=== PATIENT | female | born 1970 | race African-American/Black ===

== ENCOUNTER → 2023-06-16 | Outpatient (CLI) | payer MEDICARE, SELFPAY | END | disposition home or self-care (01) | PROVIDERS: PCP Family Medicine; Referring Provider Family Medicine; Visit Provider Family Medicine | DX: N39.0 Urinary tract infection, site not specified (principal) | CPT/HCPCS: 87086 ==

== ENCOUNTER → 2023-07-28 | Outpatient (CLI) | payer MEDICARE, MEDICAID, SELFPAY ==
--- NOTE | 2023-07-28 09:37 | RAD_ITS ---
EXAM: XR LEFT HIP WITH PELVIS WHEN PERFORMED, 2 OR 3 VIEWS CLINICAL INDICATION: Chronic pain TECHNIQUE: Two or three views of the left hip with pelvis when performed. COMPARISON: No relevant prior studies available. FINDINGS: BONES/JOINTS: There is mild irregularity of the left iliac crest may be from old trauma. No displaced fracture. No destructive or sclerotic lesions. Note that overlapping bowel shadows may however obscure fine detail. Sacroiliac joint is unremarkable. No widening of the pubic symphysis. The articular structures are unremarkable. SOFT TISSUES: Unremarkable. No soft tissue swelling or gas. RAD/HIP, UNI W/ Pelvis 2-3 Views IMPRESSION: 1. No acute osseous abnormalities of the pelvis or left hip. 2. Mild irregularity of the left iliac crest possibly from old trauma. Electronically Signed: Manan Briones MD at 23:46 EST ,
== END | disposition home or self-care (01) ==
PROVIDERS: PCP Family Medicine; Referring Provider Family Medicine; Visit Provider Family Medicine
DX: M25.552 Pain in left hip (principal); G89.29 Other chronic pain
CPT/HCPCS: 73502

== ENCOUNTER → 2024-05-26 | Outpatient (CLI) | payer MEDICAID, MEDICARE, SELFPAY ==
--- NOTE | 2024-05-26 13:07 | RAD_ITS ---
STUDY: X-RAY - ABDOMEN/PELVIS REASON FOR EXAM: Female, 54 years old. Left flank pain. TECHNIQUE: Single AP view of the abdomen / pelvis 2 images. COMPARISON: None. FINDINGS: Normal visualized lung bases. There is an normal bowel gas pattern. Minimal feces in the colon. The visualized liver, spleen and kidneys are grossly normal in size and morphology. Phleboliths. Normal visualized osseous structures. RAD/Abdomen Single View IMPRESSION: No acute abnormality in the lower chest, abdomen or pelvis. Electronically Signed: Vasquez Arias MD at 13:43 EDT ,
== END | disposition home or self-care (01) ==
PROVIDERS: PCP Family Medicine; Referring Provider Family Medicine; Visit Provider Family Medicine
DX: R10.9 Unspecified abdominal pain (principal)
CPT/HCPCS: 74018

== ENCOUNTER → 2024-08-23 | Outpatient (CLI) | payer MEDICARE, MEDICAID, SELFPAY ==
--- NOTE | 2024-08-23 16:59 | RAD_ITS ---
INDICATION: Productive cough EXAMINATION/TECHNIQUE: X-RAY - XR Chest 2 Views COMPARISON: No relevant prior comparison study available FINDINGS: LINES/DEVICES: None. LUNGS: The lungs are well expanded. No consolidation, edema or effusion. No pneumothorax. MEDIASTINUM AND CARDIOVASCULAR STRUCTURES: Cardiac silhouette not enlarged. Central airways and mediastinal contour are unremarkable. BONES AND SOFT TISSUES: No acute abnormality. RAD/Chest PA and Lateral IMPRESSION: No acute pulmonary finding. Electronically Signed: Neil Diaz MD at 20:03 EST ,
[2024-08-23 18:05] LABS: Absolute Lymphocyte Count 3.56 X10^3/uL (0.83-4.51); Absolute Neutrophil Count 8.7 X10^3/uL (2.0-7.7); Basophil# 0.06 X10^3/uL; Basophil% 0.4 % (0-1); Eosinophil# 0.37 X10^3/uL; Eosinophils% 2.7 % (0-5); Hemoglobin 11.7 g/dL (12.0-15.0); Lymphocyte # 3.56 X10^3/ul (0.83-4.51); Lymphocyte % 25.6 % (19-41); Mean Corp Hgb Conc 32.5 g/dL (32-36); Mean Corpuscular Hgb 28.3 pg (27.0-32.0); Mean Platelet Vol. 10.8 fl (6.2-12.0); Monocyte# 1.21 X10^3/uL; Monocyte% 8.7 % (0-10); NRBC Flagged by Analyzer 0 % (0-5); Neutrophil # 8.66 X10^3/uL (2.7-7.7); Neutrophil % 62.3 % (47-70); Platelet Count 344 K/mm3 (150-450); RBC Distribution Width CV 13.2 % (11.6-14.6); RBC Distribution Width SD 41.2 fl (35.1-43.9); Red Blood Count 4.14 M/mm3 (4.2-5.4); White Blood Count 13.9 K/mm3 (4.4-11.0)
[2024-08-23 18:27] LABS: Hemoglobin A1c 5.8 % (3.8-5.6)
[2024-08-23 18:41] LABS: ALB/GLOB Ratio 1.1 RATIO (0.9-2.4); AST(SGOT) 8 U/L (15-37); Alanine Aminotransfer ALT/SGPT 12 U/L (13-56); Albumin, Serum 3.9 g/dL (3.2-5.0); Alkaline Phosphatase 83 U/L (45-117); Anion Gap 6 (5-15); BUN 16 mg/dL (7-18); BUN/Creat Ratio 13.4 RATIO (10-20); Calcium,Total 8.8 mg/dL (8.5-10.1); Chloride 105 mmol/L (98-107); Cholesterol 224 mg/dL (200); Creatinine, Serum 1.19 mg/dL (0.55-1.02); EST Glomerular Filtration Rate 50 mL/min (>60); Est Glom Filt Rate - Afr Amer 61 mL/min (>60); Globulin 3.7 g/dL (2.2-4.2); Glucose 99 mg/dL (74-106); High Density Lipoprotein 58 mg/dL; Protein, Total 7.6 g/dL (6.4-8.2); Sodium Level 139 mmol/L (136-145); Triglycerides 104 mg/dL; Very Low Density Lipoprotein 21 mg/dL (5-40)
== END | disposition home or self-care (01) ==
LOC: MTLAB 16:59
PROVIDERS: PCP Family Medicine; Referring Provider Family Medicine; Visit Provider Family Medicine
DX: R05.8 Other specified cough (principal); E11.9 Type 2 diabetes mellitus without complications; I10 Essential (primary) hypertension
CPT/HCPCS: 36415; 71046; 80053; 80061; 83036; 85025

== ENCOUNTER → 2024-10-27 | Outpatient (CLI) | payer MEDICARE, MEDICAID, SELFPAY ==
--- NOTE | 2024-10-27 09:32 | RAD_ITS ---
EXAM: XR Abdomen, 1 View CLINICAL INDICATION: TECHNIQUE: Frontal supine view of the abdomen/pelvis. COMPARISON: No relevant prior studies available. FINDINGS: GASTROINTESTINAL TRACT: Fecal retention in the colon consistent with constipation. No dilation. BONES/JOINTS: Unremarkable. No acute fracture. RAD/Abdomen Single View IMPRESSION: Fecal retention in the colon consistent with constipation. Reading Location: [facility]
== END | disposition home or self-care (01) ==
LOC: MTRAD 09:28
PROVIDERS: PCP Family Medicine; Referring Provider Family Medicine; Visit Provider Family Medicine
DX: R10.9 Unspecified abdominal pain (principal)
CPT/HCPCS: 74018

== ENCOUNTER 2025-09-05 09:45 | Emergency (ER) | payer MEDICAID, MEDICARE, SELFPAY ==
[2025-09-05 09:46] VITALS: BP 148/95; PULSE 92; RESP 18; TEMP 36.6; O2SAT 100; BMI 28.3
--- NOTE | 2025-09-05 10:24 | EX.ED.DYSGE1 ---
HPI History of Present Illness Chief Complaint: Edema Informant: patient Onset/Context/Timing Onset: Today and Yesterday Context: Gradual Onset Timing: Continuous Current Severity: Moderate Maximum Severity: Moderate Narrative Narrative: 55-year-old female history of hypertension on labetalol. Not on an FABIAN inhibitor. Yesterday started getting a rash that itched on her chest. Then today developed swelling of her bottom lip. No trouble breathing. She has had reactions before. Denies recent illness denies any swelling of her tongue. Prior similar symptoms: Yes Recent Illness/Hospitalization: No PFSH PFSH Medical History Hx of neck injury Hypertension Hyperglycemia Asthma Home Medications ?Medication ?Instructions ?Recorded ?Last Taken ?Type albuterol sulfate 90 mcg/actuation 2 puff inhalation Q6H PRN PRN 09/05/25 Unknown History aerosol inhaler wheezing/dyspnea alprazolam 0.5 mg tablet 0.5 mg PO BID PRN 09/05/25 Unknown History budesonide 160 mcg-glycopyr 9 2 inh inhalation BID 09/05/25 Unknown History mcg-formot 4.8 mcg/actuation HFA inhaler (Breztri Aerosphere) cyclobenzaprine 10 mg tablet 10 mg PO QHS 09/05/25 Unknown History docusate sodium 100 mg capsule 100 mg PO DAILY 09/05/25 Unknown History epinephrine 0.3 mg/0.3 mL 0.3 ml IM PRN PRN allergies 09/05/25 Unknown History injection, auto-injector fexofenadine 180 mg tablet 180 mg PO DAILY 09/05/25 Unknown History (Allergy Relief (fexofenadine)) fluticasone propionate 50 2 spray intranasal DAILY 09/05/25 Unknown History mcg/actuation nasal spray,suspension galcanezumab-gnlm 120 mg/mL 120 mg subcut .monthly 09/05/25 08/21/25 History subcutaneous pen injector (Emgality Pen) glucagon 1 mg solution for 1 mg IM DAILY diabetes mellitus 09/05/25 Unknown History injection (Glucagon Emergency Kit) ipratropium 0.5 mg-albuterol 3 mg 3 ml inhalation 4X/DAY 09/05/25 Unknown History (2.5 mg base)/3 mL nebulization soln ipratropium bromide 42 mcg (0.06 2 spray intranasal TID PRN 09/05/25 Unknown History %) nasal spray ketorolac 60 mg/2 mL intramuscular 30 - 60 mg IM Q8H PRN pain 09/05/25 Unknown History solution labetalol 300 mg tablet 300 mg PO BID 09/05/25 Unknown History levocetirizine 5 mg tablet (24HR 5 mg PO DAILY 09/05/25 Unknown History Allergy Relief) nystatin 100,000 unit/mL oral 1 ml PO Q6H PRN 09/05/25 Unknown History suspension onabotulinumtoxinA 100 unit 5 unit transurethral PRN 09/05/25 Unknown History solution for injection (Botox) oxycodone 10 mg tablet 10 mg PO 4X/DAY PRN 09/05/25 Unknown History pantoprazole 20 mg tablet,delayed 20 mg PO DAILY 09/05/25 Unknown History release phentermine 37.5 mg tablet 37.5 mg PO DAILY 09/05/25 Unknown History prednisone 20 mg tablet 40 mg (2 x 20 mg) PO DAILY 5 days 09/05/25 Unknown Rx #10 tabs rimegepant 75 mg disintegrating 75 mg PO DAILY 09/05/25 Unknown History tablet (Nurtec ODT) tirzepatide 15 mg/0.5 mL 15 mg subcut QWEEK 09/05/25 08/31/25 History subcutaneous pen injector (Perfecto) tizanidine 4 mg tablet 4 mg PO BID PRN 09/05/25 Unknown History Allergy/AdvReac Type Severity Reaction Status Date / Time lisinopril Allergy Severe Angioedema Verified 09/05/25 10:15 grass pollen Allergy Intermediate Rash Verified 09/05/25 10:15 Haemophilus B polysaccharide Allergy Intermediate Nausea/Vom/ Verified 09/05/25 10:15 conj w/tetanus toxoid Diarrhea hydrochlorothiazide (hctz) Allergy Intermediate Angioedema Verified 09/05/25 10:15 prednisone Allergy Intermediate Rash Verified 09/05/25 10:15 atorvastatin Allergy Mild PT UNSURE Verified 09/05/25 10:15 OF REACTION birch Allergy Mild ASTHMA Verified 09/05/25 09:52 mold (mold spores) Allergy Mild ASTHMA Verified 09/05/25 10:15 losartan Allergy Unknown PT UNSURE Verified 09/05/25 10:15 OF REACTION nabumetone Allergy Unknown PT UNSURE Verified 09/05/25 10:15 OF REACTION ketoprofen Allergy PT UNSURE Verified 09/05/25 10:15 OF REACTION prednisolone AdvReac Intermediate Other Verified 09/05/25 10:15 glimepiride AdvReac Mild YEAST Verified 09/05/25 10:15 INFECTION latex AdvReac Mild Rash Verified 09/05/25 10:15 montelukast AdvReac Mild Rash Verified 09/05/25 10:15 Social History Smoking Status: Never smoker ROS ROS ED ROS Narrative Rash itching and lip swelling. No recent illness. Constitutional Constitutional ED: Denies chills or fever(s) Eyes Eyes: Denies blurry vision ENT ENT ED: Denies ear pain Cardiovascular Cardiovascular: Denies chest pain Respiratory/Chest Respiratory/Chest: Denies cough or dyspnea Gastrointestinal Gastrointestinal: Denies abdominal pain Genitourinary Genitourinary ED: Denies dysuria or hematuria Musculoskeletal Musculoskeletal: Denies arthralgias or back pain Integumentary Reports rash and other Details: Itching ; Denies abscess or Abrasions Neurologic Neurologic: Denies headache(s) Psychiatric Psychiatric: Denies anxiety or depression Endocrine Endocrinology: Denies cold intolerance Hematologic/Lymphatic Hematologic/Lymphatic: Reports none Allergic/Immunologic Allergic/Immunologic ED: Reports urticaria and other Details: Lower lip swelling ; Denies mouth swelling or tongue swelling EXAM Physical Exam Narrative Exam Narrative: Well-appearing 55-year-old female. Vital signs stable afebrile pulse ox 9% on room air no signs hypoxia. No distress. No trouble breathing. H EENT exam lower lip swollen. Right lower cheek mildly swollen. Tongue not swollen. Posterior pharynx not swollen. No drooling. Able to swallow. Neck nontender no lymphadenopathy. Lungs clear to auscultation bilaterally. No wheezing. Heart regular rhythm rate about 90 no murmur. Chest wall ribs nontender. Abdomen soft nontender. She has a rash consistent with hives on her lower sternum bilateral rib cage. Moving all 4 extremities. Normal strength. Normal dorsi plantarflexion. Back nontender. Neurologically she is awake alert. Answering questions following commands. Const Vital Signs: 09/05/25 09:46 09/05/25 10:08 Temperature 97.9 F Temperature Source Oral Pulse Rate 92 Respiratory Rate 18 Respiratory Effort Normal Non-Labored Respiratory Pattern Normal Blood Pressure 148/95 H Blood Pressure Mean 112 Pulse Ox 100 Oxygen Delivery Method Room Air MDM MDM MDM Narrative Medical decision making narrative: 55-year-old female acute allergic reaction with swelling of her tongue and hives should be treated with IM Solu-Medrol, IM Benadryl and p.o. Pepcid. She is not on an FABIAN inhibitor I think it is an allergic reaction possibly to food. Repeat exam around 12:55 PM patient is resting comfortably. The rash along her chest looks improved. Swelling of her lower lip is no worse. It still swollen. She is having no trouble swallowing or breathing. There is no swelling of her tongue and there has not been. She is comfortable being discharged home. She was given IM meds here because they were unable to get a functioning IV. She replaced on prednisone 40 mg a day for 5 days but knows she can stop it when the rash and swelling resolved. She knows to return if she has a lot worse swelling or is feeling worse. History & Record Review Discussion w/independent historian: Patient Additional record(s) reviewed:: Prior outpatient record, Prior ED visit and Prior labs Discharge Plan Triage Chief Complaint: Edema ED Provider: Obie Leo Dx/Rx/DC Orders Clinical Impression: Acute allergic reaction, Hives, Lip swelling Instructions: ED General Allergic Reactions Prescriptions: New prednisone 20 mg tablet 40 mg PO DAILY 5 Days Qty: 10 0RF No Action alprazolam 0.5 mg tablet 0.5 mg PO BID PRN albuterol sulfate 90 mcg/actuation HFA aerosol inhaler 2 puff INHALATION Q6H PRN PRN (Reason: wheezing/dyspnea) cyclobenzaprine 10 mg tablet 10 mg PO QHS docusate sodium 100 mg capsule 100 mg PO DAILY Breztri Aerosphere 160-9-4.8 mcg/actuation HFA aerosol inhaler 2 inh INHALATION BID fexofenadine [Allergy Relief (fexofenadine)] 180 mg tablet 180 mg PO DAILY epinephrine 0.3 mg/0.3 mL auto-injector 0.3 ml IM PRN PRN (Reason: allergies) ipratropium-albuterol 0.5 mg-3 mg(2.5 mg base)/3 mL solution for nebulization 3 ml inhalation 4X/DAY Glucagon Emergency Kit (human) 1 mg recon soln 1 mg IM DAILY ipratropium bromide 42 mcg (0.06 %) spray,non-aerosol 2 spray INTRANASAL TID PRN fluticasone propionate 50 mcg/actuation spray,suspension 2 spray INTRANASAL DAILY Emgality Pen 120 mg/mL pen injector 120 mg SUBCUT .monthly Patient Comments: not sure what dosage she is taking nystatin 100,000 unit/mL suspension 1 ml PO Q6H PRN Rx Instructions: swish and swallow Botox 100 unit recon soln 5 unit transurethral PRN Patient Comments: receives in bladder not sure dose labetalol 300 mg tablet 300 mg PO BID Patient Comments: takes once daily ketorolac 60 mg/2 mL solution 30 - 60 mg IM Q8H PRN (Reason: pain) oxycodone 10 mg tablet 10 mg PO 4X/DAY PRN phentermine 37.5 mg tablet 37.5 mg PO DAILY pantoprazole 20 mg tablet,delayed release (DR/EC) 20 mg PO DAILY Nurtec ODT 75 mg tablet,disintegrating 75 mg PO DAILY tizanidine 4 mg tablet 4 mg PO BID PRN Mounjaro 15 mg/0.5 mL pen injector 15 mg subcut QWEEK levocetirizine [24HR Allergy Relief] 5 mg tablet 5 mg PO DAILY Primary Care Provider: Yolanda Watts Referrals: Yolanda Watts MD [Primary Care Provider, Family Practice] - As Needed Activity Restrictions/Additional Instructions: Benadryl 25 mg twice a day till the swelling or rash resolved. Prednisone 40 mg a day starting tomorrow for 5 days. If the rash and swelling of your lip are gone you can stop it early. Ice to your lip. Follow-up if not improving or return if you are feeling worse. Print Language: Italian Disposition Disposition: Home, Self Care
[2025-09-05] MEDS: DiphenhydrAMINE 50 MG/ML Syringe 25 MG IM (10:53)
== END 2025-09-05 13:18 | disposition home or self-care (01) ==
PROVIDERS: Emergency Provider Emergency Medicine; PCP Family Medicine; Visit Provider Emergency Medicine
DX: T78.40XA Allergy, unspecified, initial encounter (principal); L50.9 Urticaria, unspecified; I10 Essential (primary) hypertension; Z79.899 Other long term (current) drug therapy; J45.909 Unspecified asthma, uncomplicated; Z79.85 Long-term (current) use of injectable non-insulin antidiabetic drugs; X58.XXXA Exposure to other specified factors, initial encounter
CPT/HCPCS: 96372; 99283; A4216